=== PATIENT | male | born 2000 | race Caucasian/White ===

== ENCOUNTER 2021-07-19 10:37 | Emergency (ER) | payer OTHER, SELFPAY ==
--- NOTE | 2021-07-19 | ECG_ITS ---
Test Reason : CHEST ACHE / HEAVINESS Blood Pressure : / mmHG Vent. Rate : 064 BPM Atrial Rate : 064 BPM P-R Int : 120 ms QRS Dur : 094 ms QT Int : 378 ms P-R-T Axes : 059 070 072 degrees QTc Int : 389 ms Normal sinus rhythm Normal ECG When compared with ECG of 14-JUN-2019 22:56, No significant change was found Referred By: Generic ED Physician Electronically Signed By:PAULINA GAMBLE MD
[2021-07-19 11:13] VITALS: BP 139/59; PULSE 79; RESP 20; TEMP 36.9; O2SAT 100; BMI 19.0
== END 2021-07-19 15:33 | disposition left against medical advice (07) ==
PROVIDERS: Emergency Provider Emergency Medicine; PCP Nurse Practitioner Family
DX: U07.1 COVID-19 (principal); R07.89 Other chest pain
CPT/HCPCS: 93005; 99283